=== PATIENT | female | born 1980 | race Two or more races ===

== ENCOUNTER 2025-01-28 05:28 | Emergency (ER) | payer MEDICAID, SELFPAY ==
[2025-01-28 05:32] VITALS: BP 110/74; PULSE 60; RESP 18; TEMP 36.9; O2SAT 99; BMI 29.8
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
== END 2025-01-28 09:05 | disposition home or self-care (01) ==
PROVIDERS: Emergency Provider Nurse Practitioner Family; PCP Family Medicine
DX: S13.4XXA Sprain of ligaments of cervical spine, initial encounter (principal); V89.2XXA Person injured in unspecified motor-vehicle accident, traffic, initial encounter; Y92.410 Unspecified street and highway as the place of occurrence of the external cause; M25.511 Pain in right shoulder
CPT/HCPCS: 70450; 72125; 73030; 99283